=== PATIENT | male | born 2005 | race Two or more races ===

== ENCOUNTER 2024-06-17 11:44 | Emergency (ER) | payer MEDICAID ==
[~2024-06-17] VITALS: Ht 175.3 cm; Wt 75.9 kg
[2024-06-17] MEDS: dexamethasone sod phosphate 10mg/ml inj IM STA (12:46)
[2024-06-17] MEDS ORDERED: PRED20TA PO (13:17)
[2024-06-17 13:21] VITALS: BP 108/59; PULSE 75; RESP 16; TEMP 99.3; O2SAT 99
== END 2024-06-17 13:35 | disposition home or self-care (01) ==
LOC: ER 11:45
DX: M62.838 Other muscle spasm (principal); Z88.0 Allergy status to penicillin
CPT/HCPCS: 96372; 99283; J1100